=== PATIENT | male | born 1945 | race Caucasian/White ===

== ENCOUNTER 2017-10-29 08:39 | Emergency (ER) | payer OTHER ==
[2017-10-29 08:54] VITALS: BP 153/61; PULSE 75; TEMP 98.7; BMI 26.1
--- NOTE | 2017-10-29 09:28 | PDOC ---
History of Present Illness <Abdiel Delarosa S - Last Filed: 10/29/17 09:48> - History of Present Illness Initial Comments: 10/29/17 09:21 72 yo M with h/o HTN, HLD, NIDDM who presents s/p mechanical fall for suture removal. Patient here for suture removal of left superior occipital suture removal following fall and suture placement 9 days [employer]. Patient fell while in elevator at hotel and hit his head. States that he has had negative head CT at time of fall. Currently asymptomatic and denies headache, weakness, lightheadeness, dizziness, sensory disturbance, vision changes, chest pain , N/V , fevers, chills, neck stiffness, or other complaints. ASA 81 mg QD. Denies other anticoagulation. <Miguel Velazquez - Last Filed: 10/29/17 09:51> - General Chief Complaint: Suture/Staple Removal(Here) Stated Complaint: STAPLE REMOVAL Time Seen by Provider: 10/29/17 08:46 Past History <Abdiel Delarosa S - Last Filed: 10/29/17 09:48> - Past Medical History COPD: No Diabetes: Yes HTN: Yes Hypercholesterolemia: Yes - Suicide/Smoking/Psychosocial Hx Smoking History: Never smoked Have you smoked in the past 12 months: No Information on smoking cessation initiated: No Hx Alcohol Use: No Drug/Substance Use Hx: No Substance Use Type: None <Nathanael Velazquezson - Last Filed: 10/29/17 09:51> - Past Medical History Allergies/Adverse Reactions: Allergies Allergy/AdvReac Type Severity Reaction Status Date / Time No Known Allergies Allergy Verified 10/29/17 08:44 Home Medications: Ambulatory Orders Aspirin [ASA -] 81 mg PO DAILY 10/29/17 Ezetimibe [Zetia] 10 mg PO DAILY 10/29/17 Metformin HCl [Glucophage] 1,000 mg PO BID 10/29/17 Quinapril HCl [Accupril] 10 mg PO DAILY 10/29/17 Rosuvastatin Calcium [Crestor] 10 mg PO DAILY 10/29/17 Sitagliptin Phosphate [Januvia] 100 mg PO DAILY 10/29/17 Review of Systems - Review of Systems Comments:: 10/29/17 09:37 GENERAL/CONSTITUTIONAL: No fever or chills. No weakness. HEAD, EYES, EARS, NOSE AND THROAT: No change in vision. No ear pain or discharge. No sore throat.- CARDIOVASCULAR: No chest pain or shortness of breath RESPIRATORY: No cough, wheezing, or hemoptysis. GASTROINTESTINAL: No nausea, vomiting, diarrhea or constipation. GENITOURINARY: No dysuria, frequency, or change in urination. MUSCULOSKELETAL: No joint or muscle swelling or pain. No neck or back pain. SKIN: No rash NEUROLOGIC: No headache, vertigo, loss of consciousness, or change in strength/ sensation. ENDOCRINE: No increased thirst. No abnormal weight change HEMATOLOGIC/LYMPHATIC: No anemia, easy bleeding, or history of blood clots. ALLERGIC/IMMUNOLOGIC: No hives or skin allergy. <Miguel Velazquez - Last Filed: 10/29/17 09:51> *Physical Exam - Vital Signs Last Vital Signs Temp Pulse Resp BP Pulse Ox 98.7 F 75 20 153/61 97 10/29/17 08:40 10/29/17 08:40 10/29/17 08:40 10/29/17 08:40 10/29/17 08:40 <Abdiel Delarosa - Last Filed: 10/29/17 09:48> - Vital Signs Last Vital Signs Temp Pulse Resp BP Pulse Ox 98.7 F 75 20 153/61 97 10/29/17 08:40 10/29/17 08:40 10/29/17 08:40 10/29/17 08:40 10/29/17 08:40 - Physical Exam Comments: 10/29/17 09:37 GENERAL: Awake, alert, and fully oriented, in no acute distress HEAD: 5 vertical sutures left sided occiput. Suture site is closed and wound healed, c/d/i. absent evidence of active bleeding or discharge. EYES: PERRLA, EOMI, sclera anicteric, conjunctiva clear ENT: Hearing grossly normal, nares patent, oropharynx clear without exudates. Moist mucosa NECK: Normal ROM, no JVD, or masses LUNGS: No distress, speaks full sentences, clear to auscultation bilaterally HEART: Regular rate and rhythm, normal S1 and S2, no murmurs, rubs or gallops, peripheral pulses normal and equal bilaterally. EXTREMITIES : Normal inspection, Normal range of motion, no edema. No clubbing or cyanosis. NEUROLOGICAL: Cranial nerves II through XII grossly intact. Normal speech, normal gait, no focal sensorimotor deficits SKIN: Warm, Dry, normal turgor, no rashes or lesions noted. <Miguel Velazquez - Last Filed: 10/29/17 09:51> Procedures - Additional Procedures Additional Procedures: other Progress: 10/29/17 09:29 Suture removal. 5 sutures removed from left sided superior posterior occiput. <Miguel Velazquez - Last Filed: 10/29/17 09:51> Medical Decision Making - Medical Decision Making 10/29/17 09:39 72 yo M with h/o HTN, HLD, NIDDM who presents s/p day 9 mechanical fall for suture removal of left superior occiput. Patient reports falling in elevator at hot in [place] and receiving 5 sutures and negative head CT at [facility]. Currently asymptomatic and denies headache, weakness, lightheadedness, dizziness, sensory disturbance, vision changes, chest pain , N/V, fevers, chills, neck stiffness, or other complaints. ASA 81 mg QD. Denies other anticoagulation. Physical exam with absent neuro deficits. Suture site is closed and wound healed, c/d/i. absent evidence of active bleeding or discharge. Low suspicion of SAH, hematoma , post concussive syndrome based on negative/benign physical exam findings, and history. No s/s of infection at suture site. Hemodynamically stable. ED Course: 5 vertical sutures removed from left sided superior occiput. 10/29/17 09:50 Patient stable and discharged with return precautions. <Miguel Velazquez - Last Filed: 10/29/17 09:51> *DC/Admit/Observation/Transfer <Abdiel Delarosa S - Last Filed: 10/29/17 09:48> - Discharge Dispostion Admit: No - Attestations Scribe Attestion: 10/29/17 09:30 Physician Attestion: 10/29/17 09:35 I attest to the information provided in this note. <Miguel Velazquez - Last Filed: 10/29/17 09:51> Diagnosis at time of Disposition: Visit for suture removal - Discharge Dispostion Disposition: HOME Condition at time of disposition: Stable - Patient Instructions Printed Discharge Instructions: DI for Suture Removal Additional Instructions: Please return to the emergency department with any new or worsening symptoms or concerns.
--- NOTE | 2017-10-29 09:58 | PDOC ---
Attending Attestation - ED Attending Attestation I have performed the following: I have examined & evaluated the patient, The case was reviewed & discussed with the resident, I agree w/resident's findings & plan, Exceptions are as noted - HPI HPI: 9 days ago after fall while in [place] , CT head negative reportedely, kisha placed, TD given 10/29/17 09:53 - Physicial Exam PE: well healing wound, kisha removed without difficulty 10/29/17 09:55 - Medical Decision Making 10/29/17 09:57 Follow up with PMD return if symptoms
== END 2017-10-29 09:48 | disposition home or self-care (01) ==
LOC: FER 08:39
DX: Z48.02 Encounter for removal of sutures (principal)
CPT/HCPCS: 99281-25

== ENCOUNTER 2019-02-15 08:37 | Day surgery (SDC) | payer OTHER ==
[2019-02-14 14:16] VITALS: BMI 25.9
[2019-02-15] MEDS ORDERED: PROPOFOL 20 ML ONE (09:52)
[2019-02-15] MEDS ORDERED: MIDAZOLAM HCL 2 MG/2 ML SINGLE DOSE VIAL ONE ×2 (09:52→10:23)
[2019-02-15] MEDS ORDERED: ceFAZolin SODIUM 1 GM VIAL ONE (10:20)
[2019-02-15] MEDS ORDERED: ceFAZolin SODIUM 1 GM VIAL IVPB ONE (10:21)
[2019-02-15] MEDS ORDERED: KETOROLAC TROMETHAMINE 30 MG/1 ML VIAL ONE (10:29)
[2019-02-15] MEDS ORDERED: LIDOCAINE HCL/PF 2% SDV 5ML VIAL ONE (10:33)
--- NOTE | 2019-02-15 10:36 | OP ---
Operative Note - Note: Operative Date: 02/15/19 Pre-Operative Diagnosis: Left renal stone Operation: Left ESWL Findings: 9 mm left renal stone Post-Operative Diagnosis: Same as Pre-op Surgeon: Chris Butler MD. Anesthesia: MAC Operative Report Dictated: Yes
[2019-02-15] MEDS ORDERED: ELECTROLYTE-148 SOLN 1,000 ML IV SCH (10:45)
[2019-02-15 11:17] VITALS: TEMP 97.7
[2019-02-15 12:12] VITALS: BP 150/68; PULSE 66
--- NOTE | 2019-02-15 14:18 | OP ---
DATE OF OPERATION: 02/15/2019 PREOPERATIVE DIAGNOSIS: Left renal calculus. POSTOPERATIVE DIAGNOSIS: Left renal calculus. PROCEDURE: Left extracorporeal shock wave lithotripsy. HISTORY: This is a very pleasant gentleman who has a long urologic history for voiding symptoms as well as renal calculi. On preoperative evaluation, patient was found to have a 7-mm left renal calculus. Treatment options including observation were discussed with the patient. The patient elected to undergo the above-stated procedure. Risks and benefits of treatment and alternative treatments discussed in detail. BRIEF OPERATIVE NOTE: Patient was brought into the operating room, placed in supine position. The stone was localized using both sonography and 3D fluoroscopy. At this time, approximately 2500 shocks were delivered in electromagnetic fashion under MAC anesthesia. Patient tolerated the procedure well. The stone appeared to fragment radiographically. Patient was then brought to recovery room in stable and satisfactory condition. ANATOLIY KIMBROUGH M.D. [id number]
== END 2019-02-15 12:05 | disposition home or self-care (01) ==
LOC: JASU-SURG 08:37
PROVIDERS: ATTEND Urology
PROC: 0TF4XZZ Fragmentation in Left Kidney Pelvis, External Approach (ICD-10-PCS; principal; 2019-02-15 10:00)
DX: N20.0 Calculus of kidney (principal)
CPT/HCPCS: 82962

== ENCOUNTER 2021-10-22 04:25 | Day surgery (SDC) | payer OTHER ==
[2021-10-17 10:27] VITALS: BMI 25.8
[2021-10-22] MEDS ORDERED: ELECTROLYTE-148 SOLN 1,000 ML IV SCH (11:00)
[2021-10-22] MEDS ORDERED: PROPOFOL 20 ML ONE ×2 (11:05→11:08)
[2021-10-22] MEDS ORDERED: MIDAZOLAM HCL 2 MG/2 ML SINGLE DOSE VIAL ONE (11:07)
[2021-10-22] MEDS ORDERED: ceFAZolin SODIUM 1 GM VIAL IVPB ONE (11:11)
[2021-10-22 13:00] VITALS: BP 155/68; PULSE 68; TEMP 97.1
== END 2021-10-22 13:06 | disposition home or self-care (01) ==
LOC: JASU-SURG 04:25
PROVIDERS: ATTEND Urology
PROC: 0TF4XZZ Fragmentation in Left Kidney Pelvis, External Approach (ICD-10-PCS; principal; 2021-10-22 11:00)
DX: N20.0 Calculus of kidney (principal); E11.9 Type 2 diabetes mellitus without complications; I10 Essential (primary) hypertension
CPT/HCPCS: 82962

== ENCOUNTER 2024-06-12 10:11 | Emergency (ER) | payer OTHER ==
[2024-06-12 10:33] VITALS: BP 160/70; PULSE 76; RESP 16; TEMP 97.3; BMI 24.7
[2024-06-12] MEDS ORDERED: LIDOCAINE 5% TOPICAL PATCH ONE (10:49)
[2024-06-12] MEDS ORDERED: ACETAMINOPHEN 500 MG TABLET (FP) ONE (10:49)
[2024-06-12] MEDS: ACETAMINOPHEN 500 MG TABLET (FP) PO ONE (10:55)
[2024-06-12] MEDS: LIDOCAINE 5% TOPICAL PATCH TP ONE (10:55)
[2024-06-12] MEDS ORDERED: LIDOCAINE PATCH REMOVAL MC ONE (22:00)
== END 2024-06-12 11:50 | disposition home or self-care (01) ==
LOC: FER 10:11
DX: S46.912A Strain of unspecified muscle, fascia and tendon at shoulder and upper arm level, left arm, initial encounter (principal); X50.1XXA Overexertion from prolonged static or awkward postures, initial encounter
CPT/HCPCS: 36415; 82550; 99283-25